=== PATIENT | male | born 2000 | race American Indian/Alaskan Native ===

== ENCOUNTER 2021-05-26 21:31 | Emergency (ER) | payer BC ==
[2021-05-27] MEDS ORDERED: LIDOCAINE 1%/EPINEPHRINE 1:100,000 VIAL (20 ML) INFILTRATI ONE (01:07)
[2021-05-27] MEDS ORDERED: ONDANSETRON 4 MG ODT TAB PO ONE (01:07)
[2021-05-27] MEDS ORDERED: MORPHINE 4 MG/1 ML INJ IM ONE (01:07)
--- NOTE | 2021-05-27 01:08 | Emergency Department Report ---
- General Chief complaint: Rectal Pain Stated complaint: ANAL INJURY Time Seen by Provider: 05/27/21 00:46 Source: patient Mode of arrival: Ambulatory Limitations: No Limitations - History of Present Illness Initial comments: 20-year-old male presents to the ER today with complaints of anal pain. Patient states that his symptoms started about 5 days ago. He reports associated swel ling. He states that his pain is getting worse. Patient states that he was sitting, straddling a concrete pillar and when he stood up he noticed the pain. He states that he sat on the pillow briefly. He did not fall or does not recall cutting himself on the pillar. Patient states that he went to an urgent care and they told him that he bruised his rectum and given Tylenol threes which has not been helping. He reports pain with bowel movements and he has been straining with bowel movements but denies any hard stools. He denies any bleeding. He denies any history of hemorrhoids. He denies any rectal intercourse. He denies similar symptoms in the past. complaint: abscess/boil, other (rectal pain and swelling ) -: days(s) (5) - Related Data Previous Rx's Medication Instructions Recorded Last Taken Type Sulfamethoxazole/Trimethoprim 1 each PO BID #14 tab 05/27/21 Unknown Rx [Bactrim DS TAB] Allergies Allergy/AdvReac Type Severity Reaction Status Date / Time No Known Allergies Allergy Verified 05/27/21 00:37 Abscess Boil HPI - HPI Chief Complaint: Rectal Pain Stated Complaint: ANAL INJURY Time Seen by Provider: 05/27/21 00:46 Home Medications: Previous Rx's Medication Instructions Recorded Last Taken Type Sulfamethoxazole/Trimethoprim 1 each PO BID #14 tab 05/27/21 Unknown Rx [Bactrim DS TAB] Allergies/Adverse Reactions: Allergies Allergy/AdvReac Type Severity Reaction Status Date / Time No Known Allergies Allergy Verified 05/27/21 00:37 ED Review of Systems ROS: Stated complaint: ANAL INJURY Other details as noted in HPI Comment: All other systems reviewed and negative ENT: denies: ear pain, throat pain Respiratory: denies: cough, shortness of breath, SOB with exertion, SOB at rest, wheezing Cardiovascular: denies: chest pain, palpitations Gastrointestinal: other (reactal pain and swelling ). denies: abdominal pain, nausea, vomiting, diarrhea, constipation, hematemesis, hematochezia Genitourinary: denies: urgency, dysuria Musculoskeletal: denies: back pain, joint swelling, arthralgia Skin: denies: rash, lesions, pruritus ED Past Medical Hx - Past Medical History Previous Medical History?: No - Surgical History Past Surgical History?: No - Medications Home Medications: Home Medications Medication Instructions Recorded Confirmed Last Taken Type Sulfamethoxazole/Trimethoprim 1 each PO BID #14 tab 05/27/21 Unknown Rx [Bactrim DS TAB] ED Physical Exam - General Limitations: No Limitations General appearance: alert, in distress (patient appears uncomfortably ) - Head Head exam: Present: atraumatic, normocephalic, normal inspection - Respiratory Respiratory exam: Present: normal lung sounds bilaterally. Absent: respiratory distress - Cardiovascular Cardiovascular Exam: Present: regular rate, normal rhythm, normal heart sounds - Rectal Rectal exam: Present: normal inspection, mass (medium sized abscess noted perirectal area that has already started to drainage. JACQUELINE is pain but it does not appear to extend into rectum.), tenderness (severe), other (Service Sprinkler Helper Al Present ). Absent: black stool, bloody stool, fecal impaction, hemorrhoids - Neurological Exam Neurological exam: Present: alert, oriented X3, CN II-XII intact, normal gait - Psychiatric Psychiatric exam: Present: normal affect, normal mood - Skin Skin exam: Present: intact ED Course Vital Signs 05/27/21 00:33 Temperature 98.6 F Pulse Rate 89 Respiratory 17 Rate Blood Pressure 156/91 [Right] O2 Sat by Pulse 99 Oximetry ED Medical Decision Making - Medical Decision Making 20-year-old male presents to the ER today with complaints of anal pain. Patient states that his symptoms started about 5 days ago. He reports associated swelling. He states that his pain is getting worse. Patient states that he was sitting, straddling a concrete pillar and when he stood up he noticed the pain. He states that he sat on the pillow briefly. He did not fall or does not recall cutting himself on the pillar. Patient states that he went to an urgent care and they told him that he bruised his rectum and given Tylenol threes which has not been helping. He reports pain with bowel movements and he has been straining with bowel movements but denies any hard stools. He denies any bleeding. He denies any history of hemorrhoids. He denies any rectal intercourse. He denies similar symptoms in the past. 0256: Patient with a perirectal abscess that was draining slightly. I was going to do an I&D, but when I went back in the room, looks like the abscess has ruptured and moderate amount of pus had already started draining. I expressed the area further. No packing was placed as patient did not tolerate exploration examination very well despite pain medications. There was no apparent extension inside the rectum. He had no significant cellulitis or lymphangitis. He was afebrile. He is not toxic appearing. Discussed diagnosis and treatment plan with patient. Discussed wound care with patient. He expressed understanding agree with plan. Patient was stable at time of discharge. Critical care attestation.: If time is entered above; I have spent that time in minutes in the direct care of this critically ill patient, excluding procedure time. ED Disposition Clinical Impression: Perirectal abscess Disposition: 01 HOME / SELF CARE / HOMELESS Is pt being admited?: No Does the pt Need Aspirin: No Condition: Stable Instructions: Anorectal Abscess Additional Instructions: Continue taking the Tylenol threes as prescribed to help with any pain. Take the Bactrim as prescribed until completion. It is important that you increase y our water intake and increase your fiber intake and you can also take stool softeners to help soften your stool so you can have a better bowel movements. Follow-up with your primary care doctor. Return to the ER if your symptoms worsens in any way. Prescriptions: Sulfamethoxazole/Trimethoprim [Bactrim DS TAB] 1 each PO BID #14 tab Referrals: OWEN CROWE MD [Staff Physician] - 3-5 Days Forms: Work/School Release Form(ED) Time of Disposition: 02:51
[2021-05-27 04:38] VITALS: BP 140/76
== END 2021-05-27 04:13 | disposition home or self-care (01) ==
LOC: ED 21:31
DX: K61.1 Rectal abscess (principal); Z79.899 Other long term (current) drug therapy
CPT/HCPCS: 96372; 99282; J2270; J3490; Q0162